=== PATIENT | male | born 2000 | race Caucasian/White ===

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

== ENCOUNTER → 2018-01-07 | Outpatient (CLI) | payer BC | LOC: FIMAGING 21:24 | DX: M54.5 Low back pain (principal) ==

== ENCOUNTER → 2018-12-30 | Outpatient (CLI) | payer BC ==
[~2018-12-30] MED LIST changes: -GADOBUTROL 10 ML VIAL IVP ONE; +IOPAMIDOL (ISOVUE-300) 100 ML BTL ONE
== END ==
LOC: CIMAGING 08:29
DX: R16.1 Splenomegaly, not elsewhere classified (principal); R59.9 Enlarged lymph nodes, unspecified; R19.7 Diarrhea, unspecified
CPT/HCPCS: 74177-PO; Q9967